=== PATIENT | female | born 1935 | race Caucasian/White ===

== ENCOUNTER 2022-03-07 20:00 | Emergency (ER) | payer MEDICARE ==
[2022-03-07] MEDS ORDERED: Boostrix 0.5 ML (Tdap) VIAL ONE (20:26)
== END 2022-03-07 22:13 | disposition home or self-care (01) ==
LOC: CSHERS 20:00
DX: S01.01XA Laceration without foreign body of scalp, initial encounter (principal); I10 Essential (primary) hypertension; Z23 Encounter for immunization; Z79.899 Other long term (current) drug therapy; W19.XXXA Unspecified fall, initial encounter
CPT/HCPCS: 12001; 70450; 72125; 90471; 90715